=== PATIENT | male | born 1955 | race Caucasian/White ===

== ENCOUNTER 2019-11-02 20:04 | Emergency (ER) | payer OTHER ==
[2019-11-02] MEDS ORDERED: Pepcid 20 MG VIAL IV ONE ×2 (20:21→20:26)
[2019-11-02] MEDS ORDERED: Zofran 4 MG/2 ML VIAL IV ONE ×2 (20:21→23:11)
[2019-11-02] MEDS ORDERED: Sodium Chloride 0.9% 1000 ML 1,000 ML IV STA ×2 (20:21→20:40)
[2019-11-02] MEDS ORDERED: Sodium Chloride 0.9% 1000 ML 1,000 ML ONE ×2 (20:26→21:17)
[2019-11-02] MEDS ORDERED: Zofran 4 MG/2 ML VIAL ONE ×2 (20:26→23:33)
--- NOTE | 2019-11-02 20:27 | ERPHSYRPT ---
- History of Present Illness Time Seen by Provider: 11/02/19 20:20 Historian: patient Exam Limitations: no limitations Patient Subjective Stated Complaint: pt states that he has been vomiting with diarrhea for the past 18 hours, pt states that he has had dry heeves, pt states he has not been able to keeping anything down, pt states that he took 2 ibuprofen 2.5 hours ago Triage Nursing Assessment: pt ambulated into the ER, pt is AxO x3, pt c/o N/V/D for the past 18 hours, pt abdomen is soft, bowel sounds active in all quads Physician History: Patient has recurrent nausea and vomiting with diarrhea since 11/01/2019. Patient's significant other had similar symptoms 4 days ago. Patient denies any travel history, recent antibiotic usage, any hospitalization history or consumption of any suspicious foods or beverages. Patient has not tried anything to help with his symptoms or had anything called in for symptom relief. Timing/Duration: yesterday Activities at Onset: none Quality: other (no pain) Severity of Pain-Max: none Severity of Pain-Current: none Modifying Factors: Improves With: nothing Associated Symptoms: diarrhea, nausea, vomiting, No back, No chest pain, No diaphoresis, No fever/chills, No fatigue, No headache, No heartburn, No loss of appetite, No neck pain, No rash, No shortness of breath, No syncope, No testicular pain, No weakness Previous symptoms: no prior history, no recent treatment Allergies/Adverse Reactions: No Known Drug Allergies Allergy (Unverified 11/02/19 20:21) Home Medications: Amlodipine Besylate 2.5 mg PO DAILY 11/02/19 [History] Lisinopril/Hydrochlorothiazide [Lisinopril-Hctz 20-25 mg Tab] 1 tab PO DAILY 08/13 [History] Hx Tetanus, Diphtheria Vaccination/Date Given: Yes Hx Influenza Vaccination/Date Given: No Hx Pneumococcal Vaccination/Date Given: No - Review of Systems Constitutional: No Fever, No Chills Eyes: No Eye Pain, No Eye Redness Ears, Nose, & Throat: No Ear Pain, No Mouth Pain, No Throat Pain, No Throat Swelling, No Painful Swallowing Respiratory: No Cough, No Dyspnea Cardiac: No Chest Pain, No Edema, No Syncope Abdominal/Gastrointestinal: Nausea, Vomiting, Diarrhea, No Abdominal Pain, No Hematemesis, No Hematochezia, No Melena Genitourinary Symptoms: No Dysuria, No Hematuria, No Flank Pain Musculoskeletal: No Back Pain, No Neck Pain, No Myalgias Skin: No Rash Neurological: No Dizziness, No Focal Weakness, No Sensory Changes Psychological: No Symptoms Endocrine: No Excessive Sweating Hematologic/Lymphatic: No Easy Bleeding, No Easy Bruising All Other Systems: Reviewed and Negative - Past Medical History Pertinent Past Medical History: Yes Neurological History: No Pertinent History ENT History: No Pertinent History Cardiac History: Hypertension Respiratory History: No Pertinent History Endocrine Medical History: No Pertinent History Musculoskeletal History: No Pertinent History GI Medical History: No Pertinent History History: No Pertinent History Psycho-Social History: No Pertinent History Male Reproductive Disorders: No Pertinent History - Past Surgical History Past Surgical History: No - Social History Smoking Status: Light tobacco smoker Exposure to second hand smoke: Yes Drug Use: none Patient Lives Alone: Yes - Nursing Vital Signs Nursing Vital Signs: Initial Vital Signs Temperature 97.9 F 11/02/19 20:09 Pulse Rate 105 H 11/02/19 20:09 Respiratory Rate 16 11/02/19 20:09 Blood Pressure 127/89 11/02/19 20:09 O2 Sat by Pulse Oximetry 98 11/02/19 20:09 - Physical Exam General Appearance: no apparent distress, alert Eye Exam: PERRL/EOMI, eyes nml inspection, No scleral icterus, No pale conjunctivae Ears, Nose, Throat Exam: normal ENT inspection, pharynx normal, moist mucous membranes Neck Exam: normal inspection, non-tender, supple, full range of motion, No meningismus, No Brudzinski, No lymphadenopathy Respiratory Exam: normal breath sounds, lungs clear, No respiratory distress Cardiovascular Exam: regular rate/rhythm, normal heart sounds, normal peripheral pulses, capillary refill <2 sec Gastrointestinal/Abdomen Exam: soft, normal bowel sounds, No tenderness, No distention, No mass, No rebound, No hernia Back Exam: normal inspection, normal range of motion, No CVA tenderness, No vertebral tenderness Extremity Exam: normal inspection, normal range of motion, pelvis stable Neurologic Exam: alert, oriented x 3, cooperative, 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, normal mood/affect, sensation nml, No motor deficits Skin Exam: normal color, warm, dry, No rash, No jaundice, No cyanosis SpO2 Interpretation: normal SpO2: 98 O2 Delivery: Room Air Ordered Tests: Active Orders 24 hr Category Date Time Status IV Insertion STAT Care 11/02/19 20:21 Active AMYLASE Stat Lab 11/02/19 20:37 Completed CBC W DIFF Stat Lab 11/02/19 20:37 Completed CMP Stat Lab 11/02/19 20:37 Completed LIPASE Stat Lab 11/02/19 20:37 Completed Lactic Acid Stat Lab 11/02/19 20:30 Completed Lactic Acid Stat Lab 11/02/19 23:10 Completed MAG [MAGNESIUM] Stat Lab 11/02/19 20:37 Completed PROTIME WITH INR Stat Lab 11/02/19 20:37 Completed UA W/RFX UR CULTURE Stat Lab 11/02/19 20:57 Completed Medication Summary Discontinued Medications Generic Name Dose Route Start Last Admin Trade Name Freq PRN Reason Stop Dose Admin Diphenhydramine HCl 25 mg 11/02/19 21:14 11/02/19 21:18 Benadryl 50 Mg/Ml IV 11/02/19 21:15 25 mg STAT ONE Administration Diphenhydramine HCl Confirm 11/02/19 21:17 Benadryl 50 Mg/Ml Administered 11/02/19 21:18 Dose 50 mg .ROUTE .STK-MED ONE Famotidine 20 mg 11/02/19 20:21 11/02/19 20:31 Pepcid 20 Mg Vial IV 11/02/19 20:22 20 mg STAT ONE Administration Famotidine Confirm 11/02/19 20:26 Pepcid 20 Mg Vial Administered 11/02/19 20:27 Dose 20 mg IV .STK-MED ONE Sodium Chloride 1,000 mls @ 999 mls/hr 11/02/19 20:21 11/02/19 21:55 Sodium Chloride 0.9% 1000 Ml IV 11/02/19 21:21 Infused .Q1H1M STA Infusion Sodium Chloride Confirm 11/02/19 20:26 Sodium Chloride 0.9% 1000 Ml Administered 11/02/19 20:27 Dose 1,000 mls @ ud .ROUTE .STK-MED ONE Sodium Chloride 1,000 mls @ 999 mls/hr 11/02/19 20:40 11/02/19 21:19 Sodium Chloride 0.9% 1000 Ml IV 11/02/19 21:40 999 mls/hr .Q1H1M STA Administration Sodium Chloride Confirm 11/02/19 21:17 Sodium Chloride 0.9% 1000 Ml Administered 11/02/19 21:18 Dose 1,000 mls @ ud .ROUTE .STK-MED ONE Ondansetron HCl 4 mg 11/02/19 20:21 11/02/19 20:30 Zofran 4 Mg/2 Ml Vial IV 11/02/19 20:22 4 mg STAT ONE Administration Ondansetron HCl Confirm 11/02/19 20:26 Zofran 4 Mg/2 Ml Vial Administered 11/02/19 20:27 Dose 4 mg .ROUTE .STK-MED ONE Ondansetron HCl 4 mg 11/02/19 23:11 Zofran 4 Mg/2 Ml Vial IV 11/02/19 23:12 STAT ONE Potassium Chloride 40 meq 11/02/19 21:15 11/02/19 21:18 Klor Con 10 Meq PO 11/02/19 21:16 40 meq STAT ONE Administration Potassium Chloride Confirm 11/02/19 21:17 Klor Con 10 Meq Administered 11/02/19 21:18 Dose 40 meq PO .STK-MED ONE Lab/Rad Data: Laboratory Result Diagrams 11/02/19 20:37 11/02/19 20:37 Laboratory Results 11/02/19 11/02/19 11/02/19 Range/Units 23:10 20:57 20:37 WBC (4.0-10.5) K/mm3 RBC (4.1-5.6) M/mm3 Hgb (12.5-18.0) gm/dl Hct (42-50) % MCV (78-100) fl MCH (26-32) pg MCHC (32-36) g/dl RDW (11.5-14.0) % Plt Count (150-450) K/mm3 MPV (6-9.5) fl Gran % (36.0-66.0) % Eos # (Auto) (0-0.5) Absolute Lymphs (auto) (1.0-4.6) Absolute Monos (auto) (0.0-1.3) Lymphocytes % (24.0-44.0) % Monocytes % (0.0-12.0) % Eosinophils % (0.00-5.0) % Basophils % (0.0-0.4) % Absolute Granulocytes (1.4-6.9) Basophils # (0-0.4) PT (8.83-12.87) SECONDS INR (0.8-3.0) Sodium (137-145) mmol/L Potassium (3.5-5.1) mmol/L Chloride (98-107) mmol/L Carbon Dioxide (22-30) mmol/L Anion Gap (5-15) MEQ/L BUN (9-20) mg/dL Creatinine (0.66-1.25) mg/dL Estimated GFR ML/MIN Glucose (74-106) mg/dL Lactic Acid 1.5 (0.4-2.0) Calcium (8.4-10.2) mg/dL Magnesium 1.9 (1.6-2.3) mg/dL Total Bilirubin (0.2-1.3) mg/dL AST (17-59) U/L ALT (0-50) U/L Alkaline Phosphatase (38-126) U/L Serum Total Protein (6.3-8.2) g/dL Albumin (3.5-5.0) g/dL Amylase (30-110) U/L Lipase (23-300) U/L Urine Color YELLOW (YELLOW) Urine Appearance CLEAR (CLEAR) Urine pH 5.0 (5-6) Ur Specific Henning 1.033 (1.005-1.025) Urine Protein 30 (Negative) Urine Ketones SMALL (NEGATIVE) Urine Blood NEGATIVE (0-5) Pascual/ul Urine Nitrite NEGATIVE (NEGATIVE) Urine Bilirubin NEGATIVE (NEGATIVE) Urine Urobilinogen NEGATIVE (0-1) mg/dL Ur Leukocyte Esterase NEGATIVE (NEGATIVE) Urine WBC (Auto) NONE (0-5) /HPF Urine RBC (Auto) NONE (0-2) /HPF U Hyaline Cast (Auto) 0-2 (0-2) /LPF U Epithel Cells (Auto) NONE (FEW) /HPF Urine Bacteria (Auto) NONE (NEGATIVE) /HPF Urine Mucus (Auto) SLIGHT (NEGATIVE) /HPF Urine Culture Reflexed NO (NO) Urine Glucose NEGATIVE (NEGATIVE) mg/dL 11/02/19 11/02/19 11/02/19 Range/Units 20:37 20:37 20:37 WBC 17.6 H (4.0-10.5) K/mm3 RBC 5.65 H (4.1-5.6) M/mm3 Hgb 17.4 (12.5-18.0) gm/dl Hct 49.4 (42-50) % MCV 87.4 (78-100) fl MCH 30.8 (26-32) pg MCHC 35.2 (32-36) g/dl RDW 13.3 (11.5-14.0) % Plt Count 240 (150-450) K/mm3 MPV 11.4 H (6-9.5) fl Gran % 89.0 H (36.0-66.0) % Eos # (Auto) 0.02 (0-0.5) Absolute Lymphs (auto) 1.00 (1.0-4.6) Absolute Monos (auto) 0.92 (0.0-1.3) Lymphocytes % 5.7 L (24.0-44.0) % Monocytes % 5.2 (0.0-12.0) % Eosinophils % 0.1 (0.00-5.0) % Basophils % 0.0 (0.0-0.4) % Absolute Granulocytes 15.67 H (1.4-6.9) Basophils # 0 (0-0.4) PT 12.7 (8.83-12.87) SECONDS INR 1.12 (0.8-3.0) Sodium 140 (137-145) mmol/L Potassium 3.2 L (3.5-5.1) mmol/L Chloride 102 (98-107) mmol/L Carbon Dioxide 22 (22-30) mmol/L Anion Gap 19.2 H (5-15) MEQ/L BUN 30 H (9-20) mg/dL Creatinine 1.04 (0.66-1.25) mg/dL Estimated GFR > 60.0 ML/MIN Glucose 164 H (74-106) mg/dL Lactic Acid (0.4-2.0) Calcium 9.7 (8.4-10.2) mg/dL Magnesium (1.6-2.3) mg/dL Total Bilirubin 0.90 (0.2-1.3) mg/dL AST 35 (17-59) U/L ALT 34 (0-50) U/L Alkaline Phosphatase 104 (38-126) U/L Serum Total Protein 9.1 H (6.3-8.2) g/dL Albumin 4.9 (3.5-5.0) g/dL Amylase 79 (30-110) U/L Lipase 62 (23-300) U/L Urine Color (YELLOW) Urine Appearance (CLEAR) Urine pH (5-6) Ur Specific Henning (1.005-1.025) Urine Protein (Negative) Urine Ketones (NEGATIVE) Urine Blood (0-5) Pascual/ul Urine Nitrite (NEGATIVE) Urine Bilirubin (NEGATIVE) Urine Urobilinogen (0-1) mg/dL Ur Leukocyte Esterase (NEGATIVE) Urine WBC (Auto) (0-5) /HPF Urine RBC (Auto) (0-2) /HPF U Hyaline Cast (Auto) (0-2) /LPF U Epithel Cells (Auto) (FEW) /HPF Urine Bacteria (Auto) (NEGATIVE) /HPF Urine Mucus (Auto) (NEGATIVE) /HPF Urine Culture Reflexed (NO) Urine Glucose (NEGATIVE) mg/dL 11/02/19 Range/Units 20:30 WBC (4.0-10.5) K/mm3 RBC (4.1-5.6) M/mm3 Hgb (12.5-18.0) gm/dl Hct (42-50) % MCV (78-100) fl MCH (26-32) pg MCHC (32-36) g/dl RDW (11.5-14.0) % Plt Count (150-450) K/mm3 MPV (6-9.5) fl Gran % (36.0-66.0) % Eos # (Auto) (0-0.5) Absolute Lymphs (auto) (1.0-4.6) Absolute Monos (auto) (0.0-1.3) Lymphocytes % (24.0-44.0) % Monocytes % (0.0-12.0) % Eosinophils % (0.00-5.0) % Basophils % (0.0-0.4) % Absolute Granulocytes (1.4-6.9) Basophils # (0-0.4) PT (8.83-12.87) SECONDS INR (0.8-3.0) Sodium (137-145) mmol/L Potassium (3.5-5.1) mmol/L Chloride (98-107) mmol/L Carbon Dioxide (22-30) mmol/L Anion Gap (5-15) MEQ/L BUN (9-20) mg/dL Creatinine (0.66-1.25) mg/dL Estimated GFR ML/MIN Glucose (74-106) mg/dL Lactic Acid 3.0 H (0.4-2.0) Calcium (8.4-10.2) mg/dL Magnesium (1.6-2.3) mg/dL Total Bilirubin (0.2-1.3) mg/dL AST (17-59) U/L ALT (0-50) U/L Alkaline Phosphatase (38-126) U/L Serum Total Protein (6.3-8.2) g/dL Albumin (3.5-5.0) g/dL Amylase (30-110) U/L Lipase (23-300) U/L Urine Color (YELLOW) Urine Appearance (CLEAR) Urine pH (5-6) Ur Specific Henning (1.005-1.025) Urine Protein (Negative) Urine Ketones (NEGATIVE) Urine Blood (0-5) Pascual/ul Urine Nitrite (NEGATIVE) Urine Bilirubin (NEGATIVE) Urine Urobilinogen (0-1) mg/dL Ur Leukocyte Esterase (NEGATIVE) Urine WBC (Auto) (0-5) /HPF Urine RBC (Auto) (0-2) /HPF U Hyaline Cast (Auto) (0-2) /LPF U Epithel Cells (Auto) (FEW) /HPF Urine Bacteria (Auto) (NEGATIVE) /HPF Urine Mucus (Auto) (NEGATIVE) /HPF Urine Culture Reflexed (NO) Urine Glucose (NEGATIVE) mg/dL - Progress Progress: improved Progress Note: 11/02/19 20:56 Patient is feeling better and would like some ice chips as his nausea has resolved. 11/02/19 21:00 With elevated WBC and Lactic Acid, I recommended further evaluation with CT scan. Patient declines as he denied any specific quadrant of pain, sick contact with similar symptoms and concern about cost of the CT scan as his insurance does not cover the entire cost of the visit. 11/02/19 23:11 Patient is still feeling nauseous. Zofran 4mg IV times will be given. 11/02/19 23:23 Patient has improved after IV hydration and IV medications with normalization of his elevated lactic acid after IV hydration and normal vitals. Patient has no abdominal pain on repeat examination and with no significantly abnormal labs after IV hydration, normal vitals and having a sick contact with similar symptoms, patient does not need any further inpatient monitoring or treatment, evaluation by a surgical scrub technologist or any imaging at this time, as patient continues to decline any CT imaging due to cost issues and having no abdominal pain during his time in the emergency department. Counseled pt/family regarding: lab results, diagnosis, need for follow-up - Departure Departure Disposition: Home Clinical Impression: Dehydration, Nausea and vomiting in adult patient, Hypokalemia, Essential hypertension Diarrhea Qualifiers: Diarrhea type: unspecified type Qualified Code(s): R19.7 - Diarrhea, unspecified Condition: Good Critical Care Time: No Referrals: DOCTOR,NO FAMILY [Primary Care Provider] - YARITZA MORALES MD [ACTIVE STAFF] - 11/05/19 Instructions: Diarrhea and Traveler's Diarrhea -- Adult, Nausea -- Adult, Vomiting -- Adult, Dehydration, Adult (DC), Hypokalemia (DC) Additional Instructions: Discharge/Care Plan ELLIS CRESPO was seen on 11/02/19 in the Emergency Room. The patient was counseled regarding Diagnosis,Lab results, and need for follow up and when to return to the Emergency Room. Return immediately to the emergency Department if any worse abdominal pain, vomiting, fever, back pain, black stool, red stool , vomiting of blood, or any other concerning signs or symptoms that were not present at today's emergency department visit for immediate reevaluation in the emergency department. Prescriptions given: Abigail Discharge Note I have spoken with the patient and family. I have explained the patient's condition, diagnosis and treatment plan based on the information available to me at this time. I have answered the patient's and family's questions and addressed any concerns. The patient and family have a good understanding of the patient's diagnosis, condition and treatment plan as can be expected at this point. The vital signs have been stable. The patient's condition is stable and appropriate for discharge from the emergency department. The patient will pursue further outpatient evaluation with the primary care physician or other designated or consulting physician as outlined in the discharge instructions. The patient and family are agreeable to this plan of care and follow-up instructions have been explained in detail. The patient and/ or caregivers have received these instruction. The patient and family are aware that any significant change in condition or worsening of symptoms should prompt an immediate return to this or the closest emergency department or call 911. Prescriptions: Ondansetron ODT 4 MG [Zofran Odt 4 mg] 4 mg PO Q8H PRN PRN #10 tab.rapdis PRN Reason: Nausea Diphenoxylate HCl/Atropine [Lomotil Tablet] 1 each PO TID PRN #10 tablet PRN Reason: Diarrhea
[2019-11-02 20:39] LABS: Absolute Neutrophil Ct (ANC) 15.67 (1.4-6.9); Basophil (Absolute #) 0 (0-0.4); Eosinophil % 0.1 % (0.00-5.0); Eosinophil (Absolute #) 0.02 (0-0.5); Hematocrit 49.4 % (42-50); Hemoglobin 17.4 gm/dl (12.5-18.0); Lymphocytes % 5.7 % (24.0-44.0); Mean Cell Volume 87.4 fl (78-100); Mean Corpuscular Hemoglobin 30.8 pg (26-32); Mean Corpuscular Hgb Concent. 35.2 g/dl (32-36); Mean Platelet Volume 11.4 fl (6-9.5); Monocyte (Absolute #) 0.92 (0.0-1.3); Monocytes % 5.2 % (0.0-12.0); Platelet Count 240 K/mm3 (150-450); Red Blood Count 5.65 M/mm3 (4.1-5.6); Red Cell Distribution Width 13.3 % (11.5-14.0); White Blood Count 17.6 K/mm3 (4.0-10.5)
[2019-11-02 20:48] LABS: INR 1.12 (0.8-3.0); PROTIME 12.7 SECONDS (8.83-12.87)
[2019-11-02 20:52] LABS: ALBUMIN 4.9 g/dL (3.5-5.0); ALKALINE PHOSPHATASE 104 U/L (38-126); AMYLASE 79 U/L (30-110); ANION GAP 19.2 MEQ/L (5-15); BLOOD UREA NITROGEN 30 mg/dL (9-20); CHLORIDE 102 mmol/L (98-107); Calcium 9.7 mg/dL (8.4-10.2); Carbon Dioxide 22 mmol/L (22-30); Creatinine 1 1.04 mg/dL (0.66-1.25); Glucose 164 mg/dL (74-106); LIPASE 62 U/L (23-300); Potassium 3.2 mmol/L (3.5-5.1); SGOT/AST 35 U/L (17-59); SGPT/ALT 34 U/L (0-50); SODIUM 140 mmol/L (137-145); Total Protein 9.1 g/dL (6.3-8.2)
[2019-11-02] MEDS ORDERED: BENADRYL 50 MG/ML IV ONE (21:14)
[2019-11-02] MEDS ORDERED: Klor Con 10 MEQ PO ONE ×2 (21:15→21:17)
[2019-11-02] MEDS ORDERED: BENADRYL 50 MG/ML ONE (21:17)
[2019-11-02 21:20] LABS: Appearance CLEAR (CLEAR); Bilirubin NEGATIVE (NEGATIVE); Blood NEGATIVE Ery/ul (0-5); Glucose NEGATIVE (NEGATIVE); Hyaline Casts 0-2 /LPF (0-2); Ketones SMALL (NEGATIVE); Leukocyte Esterase NEGATIVE (NEGATIVE); Mucus SLIGHT /HPF (NEGATIVE); Nitrite NEGATIVE (NEGATIVE); Protein,Urine Dip 30 (Negative); Specific Gravity 1.033 (1.005-1.025); Urobilinogen NEGATIVE mg/dL (0-1)
[2019-11-02 23:38] VITALS: BP 117/83; PULSE 79; O2SAT 95
[2019-11-02 23:45] LABS: Slide Review 1 YES
== END 2019-11-02 23:45 | disposition home or self-care (01) ==
LOC: ED 20:04
DX: E86.0 Dehydration (principal); R11.2 Nausea with vomiting, unspecified; E87.6 Hypokalemia; I10 Essential (primary) hypertension; R19.7 Diarrhea, unspecified; Z79.899 Other long term (current) drug therapy
CPT/HCPCS: 36000; 36415; 80053; 81001; 82150; 83605; 83690; 83735; 85025; 85610; 96374; 96375; 99284; J1200; J2405; A9270-GY